=== PATIENT | male | born 1995 | race African-American/Black ===

== ENCOUNTER 2021-03-18 10:44 | Emergency (ER) | payer OTHER ==
[~2021-03-18] VITALS: Ht 198.1 cm; Wt 75.0 kg
[2021-03-18] MEDS ORDERED: ONDANSETRON PF 4 MG/2 ML VIAL. IVP ONE (11:45)
[2021-03-18] MEDS ORDERED: IV NORMAL SALINE 1,000ML 1,000 ML IV ONE (11:45)
--- NOTE | 2021-03-18 11:52 | PHYS DOC ---
Past History Past Medical History: No Pertinent History (JONI MAHARAJ APRN) Past Surgical History: No Surgical History (JONI MAHARAJ APRN) Alcohol Use: Occasionally (JONI MAHARAJ APRN) General Adult EDM: Chief Complaint: ABDOMINAL PAIN HPI: HPI: Patient is a 25-year-old male that presents today with right lower quadrant abdominal pain. Patient states pain started 2 days ago and was mostly generalized and over the last 2 days it has more localized down to the right lower quadrant, patient does report chills, loose stools x24 to 48 hours, nausea, and decreased appetite. Patient does have a family history of multiple people in his family that have had appendicitis. Patient does work at a water treatment plant and does not believe he has had any exposure to anything there. (JONI MAHARAJ APRN) Review of Systems: Review of Systems: Constitutional: chills Eyes: Denies change in visual acuity HENT: Denies nasal congestion or sore throat Respiratory: Denies cough or shortness of breath Cardiovascular: Denies chest pain or edema GI: abdominal pain, nausea, or diarrhea, denies bloody stools vomiting : Denies dysuria Musculoskeletal: Denies back pain or joint pain Integument: Denies rash Neurologic: Denies headache, focal weakness or sensory changes Endocrine: Denies polyuria or polydipsia Lymphatic: Denies swollen glands Psychiatric: Denies depression or anxiety (JONI MAHARAJ APRN) Allergies: Allergies: Allergies Coded Allergies Type Severity Reaction Last Updated Verified Jay And Derivatives Allergy Unknown 03/18/21 Yes Uncoded Allergies Type Severity Reaction Last Updated Verified COD Allergy Unknown 03/18/21 (JONI MAHARAJ APRN) Physical Exam: PE: Constitutional: Well developed, well nourished, no acute distress, non-toxic appearance. [] HENT: Normocephalic, atraumatic, bilateral external ears normal, oropharynx moist, no oral exudates, nose normal. [] Eyes: PERRLA, EOMI, conjunctiva normal, no discharge. [] Neck: Normal range of motion, no tenderness, supple, no stridor. [] Cardiovascular:Heart rate regular rhythm, no murmur [] Lungs & Thorax: Bilateral breath sounds clear to auscultation [] Abdomen: Bowel sounds normal, soft, no tenderness, no masses, no pulsatile masses. [] Skin: Warm, dry, no erythema, no rash. [] Back: No tenderness, no CVA tenderness. [] Extremities: No tenderness, no cyanosis, no clubbing, ROM intact, no edema. [] Neurologic: Alert and oriented X 3, normal motor function, normal sensory function, no focal deficits noted. [] Psychologic: Affect normal, judgement normal, mood normal. [] (JONI MAHARAJ APRN) Current Patient Data: Labs: Laboratory Tests Test 03/18/21 11:57 03/18/21 13:10 White Blood Count 3.0 x10^3/uL Red Blood Count 5.04 x10^6/uL Hemoglobin 15.8 g/dL Hematocrit 47.8 % Mean Corpuscular Volume 95 fL Mean Corpuscular Hemoglobin 31 pg Mean Corpuscular Hemoglobin Concent 33 g/dL Red Cell Distribution Width 13.3 % Platelet Count 136 x10^3/uL Neutrophils (%) (Auto) 56 % Lymphocytes (%) (Auto) 26 % Monocytes (%) (Auto) 15 % Eosinophils (%) (Auto) 2 % Basophils (%) (Auto) 1 % Neutrophils # (Auto) 1.6 x10^3uL Lymphocytes # (Auto) 0.8 x10^3/uL Monocytes # (Auto) 0.5 x10^3/uL Eosinophils # (Auto) 0.1 x10^3/uL Basophils # (Auto) 0.0 x10^3/uL Sodium Level 141 mmol/L Potassium Level 4.1 mmol/L Chloride Level 103 mmol/L Carbon Dioxide Level 31 mmol/L Anion Gap 7 Blood Urea Nitrogen 10 mg/dL Creatinine 1.1 mg/dL Estimated GFR (Cockcroft-Gault) 98.7 BUN/Creatinine Ratio 9 Glucose Level 82 mg/dL Calcium Level 8.7 mg/dL Total Bilirubin 0.8 mg/dL Aspartate Amino Transf (AST/SGOT) 18 U/L Alanine Aminotransferase (ALT/SGPT) 21 U/L Alkaline Phosphatase 69 U/L Total Protein 7.7 g/dL Albumin 3.7 g/dL Albumin/Globulin Ratio 0.9 Lipase 97 U/L Urine Collection Type Unknown Urine Color Yellow Urine Clarity Clear Urine pH 5.5 Urine Specific Holland 1.010 Urine Protein Neg Urine Glucose (UA) Neg mg/dL Urine Ketones (Stick) Trace mg/dL Urine Blood Neg Urine Nitrite Neg Urine Bilirubin Neg Urine Urobilinogen Dipstick 1.0 mg/dL Urine Leukocyte Esterase Neg Urine RBC 0 /HPF Urine WBC 0 /HPF Urine Bacteria 0 /HPF Current Medications Medications (Trade) Dose Ordered Sig/Altaf Route PRN Reason Start Time Stop Time Status Last Admin Dose Admin Sodium Chloride 1,000 ml @ 1,000 mls/hr 1X ONCE IV 03/18/21 11:45 03/18/21 12:44 DC 03/18/21 12:04 Fentanyl Citrate (Fentanyl 2ml Vial) 50 mcg 1X ONCE IVP 03/18/21 11:45 03/18/21 11:57 DC 03/18/21 12:03 Ondansetron HCl (Zofran) 4 mg 1X ONCE IVP 03/18/21 11:45 03/18/21 11:57 DC 03/18/21 11:59 Iohexol (Omnipaque 300 Mg/ml) 75 ml 1X ONCE IV 03/18/21 12:00 03/18/21 12:01 DC 03/18/21 12:07 Vital Signs: Vital Signs Date Time Temp Pulse Resp B/P (MAP) Pulse Ox O2 Delivery O2 Flow Rate FiO2 03/18/21 14:00 62 16 125/79 (94) 99 03/18/21 13:00 70 16 138/79 (98) 99 03/18/21 12:03 14 100 03/18/21 12:00 63 14 125/55 (78) 100 03/18/21 11:25 98.2 70 16 137/86 (103) 100 Vital Signs Date Time Temp Pulse Resp B/P (MAP) Pulse Ox O2 Delivery O2 Flow Rate FiO2 03/18/21 11:25 98.2 70 16 137/86 (103) 100 (JONI MAHARAJ APRN) EKG: EKG: [] (JONI MAHARAJ APRN) Radiology/Procedures: Radiology/Procedures: REASON: right lower quad abdominal pain,nausea- 75mls omni 300 PROCEDURE: CT ABD PELV W/ IV CONTRST ONLY CT of the abdomen and pelvis with contrast 03/18/2021 12:20 PM Indication: Reason: right lower quad abdominal pain,nausea- Comparison study: None Technique: Multidetector CT imaging of the abdomen and pelvis was performed f ollowing the administration of IV contrast. Findings: The partially visualized lung bases demonstrate no acute abnormality. The liver, gallbladder, spleen, bilateral adrenal glands, bilateral kidneys, and pancreas, are grossly unremarkable. There is no bowel obstruction. No evidence of acute inflammatory change involving visualized bowel is identified. Appendix is visualized, without evidence of acute appendicitis. Bladder is grossly unremarkable. No free fluid or free air is seen in the abdomen or pelvis. No acute osseous changes are identified. Impression: No evidence of acute intra-abdominal abnormality is identified. CT DOSING PQRS STATEMENT: One or more of the following individualized dose reduction techniques were utilized for this examination: 1. Automated exposure control 2. Adjustment of the mA and/or kV according to patient size 3. Use of iterative reconstruction technique Electronically signed by: Adonis Irving MD (03/18/2021 12:20 PM) [id number][] (JONI MAHARAJ APRN) Heart Score: C/O Chest Pain: N/A Risk Factors: Risk Factors: DM, Current or recent (<one month) smoker, HTN, HLP, family history of CAD, obesity. Risk Scores: Score 0 - 3: 2.5% MACE over next 6 weeks - Discharge Home Score 4 - 6: 20.3% MACE over next 6 weeks - Admit for Clinical Observation Score 7 - 10: 72.7% MACE over next 6 weeks - Early Invasive Strategies (JONI MAHARAJ APRN) Course & Med Decision Making: Course & Med Decision Making Pertinent Labs and Imaging studies reviewed. (See chart for details) 1412 patient resting quietly in the bed no complaint of abdominal pain, patient has not had any nausea vomiting or diarrhea while in the department. Reviewed labs and radiological exams with patient informing him that they were all normal. Patient will go home with strict instructions to return for increased abdominal pain, fever, inability to keep p.o. fluids down, or increased nausea vomiting diarrhea. If symptoms continue 5 to 7 days patient will need to follow-up with one of the prime physicians listed in the brochure. Patient is agreeable to the plan of care to go home and follow-up] (JONI MAHARAJ APRN) Kayley Disclaimer: Dragjasen Disclaimer: This electronic medical record was generated, in whole or in part, using a voice recognition dictation system. (JONI MAHARAJ APRN) Attending Co-Sign The patient was seen and interviewed as well as examined at the bedside. The chart was reviewed. The case was discussed. Agree with the plan of care. (BRIAN PACE DO) Departure Departure: Impression: Primary Impression: Abdominal pain Qualified Codes: R10.30 - Lower abdominal pain, unspecified Disposition: HOME / SELF CARE / HOMELESS Condition: STABLE Referrals: PCP,ROSEMARY (PCP) ADIEL JONES Patient Instructions: Abdominal Pain Additional Instructions: Clear liquids for the next 12 to 24 hours advance diet as tolerated Turn to the emergency department for increased abdominal pain localizing to the right lower quadrant, fever or chills, inability to keep by mouth fluid down or nausea vomiting or diarrhea JONI MAHARAJ APRN Mar 18, 2021 11:52 BRIAN PACE DO Mar 19, 2021 06:54
[2021-03-18] MEDS ORDERED: IOHEXOL 300 MG/ML 75 ML VIAL. IV ONE (12:00)
--- NOTE | 2021-03-18 12:23 | RAD ---
CT of the abdomen and pelvis with contrast 03/18/2021 12:20 PM Indication: Reason: right lower quad abdominal pain,nausea- Comparison study: None Technique: Multidetector CT imaging of the abdomen and pelvis was performed following the administrat ion of IV contrast. Findings: The partially visualized lung bases demonstrate no acute abnormality. The liver, gallbladder, spleen, bilateral adrenal glands, bilateral kidneys, and pancreas, are grossl y unremarkable. There is no bowel obstruction. No evidence of acute inflammatory change involving vis ualized bowel is identified. Appendix is visualized, without evidence of acute appendicitis. Bladder is grossly unremarkable. No free fluid or free air is seen in the abdomen or pelvis. No acute osseou s changes are identified. Impression: No evidence of acute intra-abdominal abnormality is identified. CT DOSING PQRS STATEMENT: One or more of the following individualized dose reduction techniques were utilized for this examinat ion: 1. Automated exposure control 2. Adjustment of the mA and/or kV according to patient size 3. Use of iterative reconstruction technique Electronically signed by: Adonis Irving MD (03/18/2021 12:20 PM) [id number]
[2021-03-18 12:26] LABS: BASO % 1 % (0-3); CALCIUM 8.7 mg/dL (8.5-10.1); CREATININE 1.1 mg/dL (0.7-1.3); EOS # 0.1 x10^3/uL (0.0-0.7); EOS % 2 % (0-3); GFR 98.7; HEMATOCRIT 47.8 % (39.0-53.0); HEMOGLOBIN 15.8 g/dL (13.0-17.5); LYMPH # 0.8 x10^3/uL (1.0-4.8); LYMPH % 26 % (24-48); MEAN CORPUSCULAR HEMOGLOBIN 31 pg (25-35); MEAN CORPUSCULAR HGB CONC 33 g/dL (31-37); MEAN CORPUSCULAR VOLUME 95 fL (79-100); MONO # 0.5 x10^3/uL (0.0-1.1); MONO % 15 % (0-9); NEUT # 1.6 x10^3uL (1.8-7.7); NEUT % 56 % (31-73); PLATELET COUNT 136 x10^3/uL (140-400); POTASSIUM 4.1 mmol/L (3.5-5.1); RED BLOOD COUNT 5.04 x10^6/uL (4.30-5.70); RED CELL DISTRIBUTION WIDTH 13.3 % (11.5-14.5)
[2021-03-18 12:35] LABS: ALBUMIN 3.7 g/dL (3.4-5.0); ALBUMIN/GLOBULIN RATIO 0.9 (1.0-1.7); TOTAL BILIRUBIN 0.8 mg/dL (0.2-1.0); TOTAL PROTEIN 7.7 g/dL (6.4-8.2)
[2021-03-18 13:35] LABS: BACTERIA,URINE 0 /HPF (0-FEW); BILIRUBIN,URINE NEG (NEG); CLARITY,URINE CLEAR; COLOR,URINE YELLOW; GLUCOSE,URINE NEG (NEG); NITRITE,URINE NEG (NEG); RBC,URINE 0 /HPF (0-2); WBC,URINE 0 /HPF (0-4)
[2021-03-18 14:00] VITALS: BP 125/79
== END 2021-03-18 14:20 | disposition home or self-care (01) ==
LOC: ER 10:44
DX: R10.31 Right lower quadrant pain (principal)
CPT/HCPCS: 36415; 74177; 80053; 81001; 83690; 85025; 96361; 96374; 96375; 99284; J2405; J3010; J7030; Q9967